=== PATIENT | male | born 1980 | race Caucasian/White ===

== ENCOUNTER 2022-03-04 22:24 | Emergency (ER) | payer SELFPAY ==
[2022-03-04 22:40] VITALS: BP 117/59; PULSE 93; TEMP 98.4; BMI 36.9
[2022-03-05] MEDS ORDERED: chlordiazePOXIDE HCL 25 MG CAPSULE PO ONE (04:11)
[2022-03-05] MEDS ORDERED: chlordiazePOXIDE HCL 25 MG CAPSULE ONE (04:30)
== END 2022-03-05 06:25 | disposition home or self-care (01) ==
LOC: JER 22:24
DX: F10.129 Alcohol abuse with intoxication, unspecified (principal); S02.2XXA Fracture of nasal bones, initial encounter for closed fracture; Y99.9 Unspecified external cause status
CPT/HCPCS: 70450-TC; 99284-25